=== PATIENT | female | born 1940 | race Caucasian/White ===

== ENCOUNTER 2017-05-14 08:34 | Inpatient (IN) | payer MEDICARE, BC ==
[~2017-05-14] VITALS: Ht 180.3 cm; Wt 66.0 kg
[2017-05-14] MEDS: FUROSEMIDE 40 MG TAB PO SCH (09:00)
[2017-05-14 12:47] VITALS: BP 123/59; PULSE 80; RESP 18; TEMP 97.6; O2SAT 100
[2017-05-14] MEDS ORDERED: WARF-21 PO (13:46)
[2017-05-14] MEDS ORDERED: FURO40TA PO (13:46)
[2017-05-14] MEDS ORDERED: ROPI3TAB PO (13:46)
[2017-05-14] MEDS ORDERED: WARF-22 PO (13:46)
[2017-05-14] MEDS ORDERED: CARB25TA9 PO (13:46)
[2017-05-14] MEDS ORDERED: VENTAER INH (13:46)
[2017-05-14] MEDS ORDERED: GABA300C5 PO (13:46)
[2017-05-14] MEDS ORDERED: ROPI1TAB PO (13:46)
[2017-05-14] MEDS ORDERED: BISO5TAB5 PO (13:46)
[2017-05-14] MEDS ORDERED: CARB10TA2 PO (13:46)
[2017-05-14] MEDS ORDERED: IRONTAB5 PO (13:47)
[2017-05-14] MEDS: D5-NS + KCL 20 MEQ INJ 1,000 ML IV SCH (15:02)
[2017-05-14 16:14] VITALS: BP 117/56; PULSE 76; RESP 17; TEMP 97.6; O2SAT 97
[2017-05-14] MEDS ORDERED: ALBUTEROL SULFATE 90 MCG/ACT HFA 18 GM INHALER INH PRN (17:00)
[2017-05-14] MEDS: GABAPENTIN 300 MG CAP PO SCH ×2 (18:08→21:00)
[2017-05-14] MEDS: CARBIDOPA/LEVODOPA 25 MG/100 MG TAB PO SCH ×2 (18:08→21:00)
[2017-05-14 22:55] VITALS: BP 107/56; PULSE 82; RESP 17; TEMP 97.8; O2SAT 100
[2017-05-15] MEDS: CARBIDOPA/LEVODOPA 25 MG/100 MG TAB PO SCH ×4 (00:01→22:28)
[2017-05-15] MEDS: GABAPENTIN 300 MG CAP PO SCH ×4 (00:02→22:28)
[2017-05-15 00:45] VITALS: BP 103/58; PULSE 83; RESP 17; TEMP 98; O2SAT 96
[2017-05-15 03:29] VITALS: BP 98/55; PULSE 73; RESP 17; TEMP 98.4; O2SAT 98
[2017-05-15 07:46] LABS: APTT (PATIENT) 36.6 SEC (24.3-30.1); INTERNATIONAL NORMALIZED RATIO 1.4 RATIO; PROTHROMBIN TIME - PATIENT 15.5 SEC (9.8-11.6)
[2017-05-15 08:00] VITALS: BP 98/55; PULSE 73; RESP 20; TEMP 97.8; O2SAT 97
[2017-05-15] MEDS: BISOPROLOL FUMARATE 5 MG TAB PO SCH (09:00)
[2017-05-15] MEDS ORDERED: DIGOXIN 0.25 MG TAB PO SCH (09:00)
[2017-05-15] MEDS ORDERED: BISOPROLOL 5 MG PO SCH (09:00)
[2017-05-15] MEDS ORDERED: FUROSEMIDE 20 MG TAB PO SCH (09:00)
[2017-05-15] MEDS: FUROSEMIDE 40 MG TAB PO SCH (10:05)
[2017-05-15 12:00] VITALS: BP 115/65; PULSE 81; RESP 16; TEMP 97.5; O2SAT 100
[2017-05-15] MEDS: D5-NS + KCL 20 MEQ INJ 1,000 ML IV SCH (14:11)
[2017-05-15] MEDS ORDERED: PEG (High)/E-LYTE SOLN 4000 ML BTL PO ONE (17:15)
[2017-05-15 17:44] VITALS: BP 115/56; PULSE 84; RESP 18; TEMP 97.6; O2SAT 99
[2017-05-15 20:00] VITALS: BP 109/55; PULSE 84; RESP 20; TEMP 97.5; O2SAT 100
[2017-05-15 20:46] LABS: HEMATOCRIT 34.8 % (35.0-46.0); MEAN CELL VOLUME 95.2 FL (80.0-100.0); MEAN CORPUSCULAR HEMOGLOBIN 31.5 PG (27.0-34.0); MEAN CORPUSCULAR HGB CONC 33.1 % (32.0-36.0); PLATELET COUNT 147 TH/MM3 (150-450); RED BLOOD COUNT 3.66 MIL/MM3 (4.00-5.30); REVIEW FLAG FINAL; WHITE BLOOD COUNT 4.7 TH/MM3 (4.0-11.0)
[2017-05-15 20:57] LABS: APTT (PATIENT) 36.4 SEC (24.3-30.1); INTERNATIONAL NORMALIZED RATIO 1.3 RATIO; PROTHROMBIN TIME - PATIENT 14.5 SEC (9.8-11.6)
[2017-05-15 21:09] LABS: BICARBONATE 32.6 MEQ/L (21.0-32.0); POTASSIUM 3.7 MEQ/L (3.5-5.1)
[2017-05-15] MEDS: HEPARIN-D5W 25,000 U/250 ML 250 ML IV PRN (22:32)
[2017-05-16] VITALS: BP 109/55; PULSE 84; RESP 20; TEMP 97.5; O2SAT 100
[2017-05-16] MEDS ORDERED: SODIUM CHLORID 0.9% 500 ML IV PRN (01:00)
[2017-05-16 01:57] LABS: APTT (PATIENT) 39.9 SEC (24.3-30.1)
[2017-05-16 04:00] VITALS: BP 113/58; PULSE 82; RESP 18; TEMP 96.9; O2SAT 99
--- NOTE | 2017-05-16 05:18 | MH ---
cc: SCOUT PADILLA M.D. DATE OF ADMISSION: 05/14/2017 ADMITTING DIAGNOSIS Anemia. HISTORY OF PRESENT ILLNESS The patient is 76-year-old female who is being admitted for workup of anemia. She was noted to be anemic by her primary care doctor and Cologuard follow-up test was positive. Her normal bowel habit is daily. She denies bright red blood per rectum or melena. She denies anal or abdominal pain. She denies protrusion, discharge, itching or weight loss. She is on Coumadin and this has been stopped for two full days at the time of admission. She has had one with one miscarriage. She does have urinary incontinence but denies anal incontinence. FAMILY HISTORY Negative for colorectal cancer or polyps. This will be her first colonoscopy. PAST MEDICAL HISTORY 1. Atrial fibrillation. 2. Kidney disease. 3. Hypertension. 4. Anemia. 5. Restless leg syndrome. PAST MEDICAL HISTORY 1. Appendectomy. 2. Heart valve replacement. 3. Pacemaker. ALLERGIES None. SOCIAL HISTORY Tobacco in the distant past. Denies alcohol. MEDICATIONS 1. Advair. 2. Losartan. 3. Digoxin. 4. Bisoprolol. 5. Carbidopa. 6. Ropinirole. 7. Gabapentin. 8. Furosemide 9. Magnesium. 10. Warfarin. REVIEW OF SYSTEMS Negative for chills, fatigue, night sweats, weight loss, blurred vision, chronic cough, difficulty breathing, chest pain, fainting, palpitations, leg cramps, muscle weakness, dizziness, fainting, appetite changes and positive for tinnitus, shortness of breath, swelling of extremities and easy bleeding and bruising. PHYSICAL EXAMINATION GENERAL: An alert female who appears comfortable. NEURO: Grossly intact. SKIN: Warm and dry. CARDIOVASCULAR: Regular rate. CHEST: Breathing is symmetric bilaterally and nonlabored. HEAD: Normocephalic, atraumatic. ABDOMEN: Benign. EXTREMITIES: No edema. IMPRESSION 1. Anemia. 2. Positive Cologuard test. 3. Screening. PLAN We will admit her for heparin anticoagulation which will be stopped prior to her colonoscopy and resumed depending on findings. MD DENG Bone/GOMEZ /11:52 PM /5:04 AM DREW
[2017-05-16 05:51] LABS: APTT (PATIENT) 34.6 SEC (24.3-30.1); INTERNATIONAL NORMALIZED RATIO 1.3 RATIO
--- NOTE | 2017-05-16 08:11 | GIPROC ---
[facility] [address] [facility]. [facility], [address] COLONOSCOPY PROCEDURE REPORT EXAM DATE: 05/16/2017 PATIENT NAME: Pina Perez MR #: [id number] BIRTHDATE: 1940 ENDOSCOPIST: Eli Gonzalez MD ORDER #: [id number] EQUAL OPPORTUNITY REPRESENTATIVE: STATUS: inpatient INDICATIONS: The patient is a 76 yr old female here for a colonoscopy due to anemia, positive ColoGuard test. PROCEDURE PERFORMED: Total Colonoscopy MEDICATIONS: See Anesthesia Record ESTIMATED BLOOD LOSS: None CONSENT: The patient understands the risks and benefits of the procedure and understands that these risks include, but are not limited to: sedation, allergic reaction, infection, perforation and/or bleeding. Alternative means of evaluation and treatment include, among others: physical exam, x-rays, and/or surgical intervention. The patient elects to proceed with this endoscopic procedure. DESCRIPTION OF PROCEDURE: checked for proper function. Hand hygiene and appropriate measures for infection prevention was taken. After the risks, benefits and alternatives of the procedure were thoroughly explained, Informed consent was verified, confirmed and timeout was successfully executed by the treatment team. A digital exam was performed. The Pentax adult colonoscopy endoscope was introduced through the anus and advanced to the cecum, which was identified by the appendiceal orifice, tri-radiate valve, and ileocecal valve. The prep quality was excellent. The instrument was then slowly withdrawn as the colon was fully examined. There were no mucosal abnormalities noted with the cecum, ascending colon, transverse colon, or descending colon. There were multiple diverticuli in the sigmoid. There were no abnormalities in the rectum. The scope was then completely withdrawn from the patient and the procedure terminated. ADVERSE EVENTS: There were no complications. WITHDRAWL TIME: DEGREE OF DIFFICULTY: IMPRESSIONS: Normal Colon RECOMMENDATIONS: Repeat colonoscopy in 10 years PATIENT CONDITION: Stable DISPOSITION: To floor RECALL: 10 years Eli Gonzalez MD eSigned: Eli Gonzalez MD 05/16/2017 8:11 AM cc: Dr. Todd PATIENT NAME: Pina Perez MR#: [id number]
[2017-05-16] MEDS: FUROSEMIDE 40 MG TAB PO SCH (08:59)
[2017-05-16] MEDS: BISOPROLOL FUMARATE 5 MG TAB PO SCH (08:59)
[2017-05-16] MEDS: GABAPENTIN 300 MG CAP PO SCH ×4 (08:59→22:37)
[2017-05-16] MEDS ORDERED: PROPOFOL 200 MG/20 ML AMP IV ONE (09:00)
[2017-05-16] MEDS: CARBIDOPA/LEVODOPA 25 MG/100 MG TAB PO SCH ×4 (09:00→22:37)
[2017-05-16] MEDS ORDERED: WARFARIN SOD 10 MG TAB PO ONE (09:00)
[2017-05-16] MEDS: HEPARIN-D5W 25,000 U/250 ML 250 ML IV PRN (09:14)
[2017-05-16 12:00] VITALS: BP 96/53; PULSE 72; RESP 16; TEMP 96.1; O2SAT 94
[2017-05-16 16:00] VITALS: BP 115/67; PULSE 83; RESP 16; TEMP 96.1; O2SAT 98
[2017-05-16 17:46] LABS: APTT (PATIENT) 59.4 SEC (24.3-30.1)
--- NOTE | 2017-05-16 19:45 | EKG ---
Date Performed: 05/15/2017 Time Performed: 21:00:55 PTAGE: 76 years EKG: ELECTRONIC VENTRICULAR PACEMAKER ABNORMAL RHYTHM ECG NO PREVIOUS TRACING DOCTOR: Gian Rosario Interpretating Date/Time 05/16/2017 19:44:13
[2017-05-16 20:00] VITALS: BP 136/68; PULSE 83; RESP 20; TEMP 95.9; O2SAT 96
[2017-05-16 23:42] LABS: BLOOD, URINE NEG (NEG); COMMENT (UR) CULT NOT INDICATED; CULTURE IF INDICATED CULT NOT INDICATED; GLUCOSE,URINE NEG (NEG); KETONE, URINE NEG (NEG); NITRITE,URINE NEG (NEG); URINE COLOR YELLOW (YELLW/STRAW)
[2017-05-16 23:56] LABS: APTT (PATIENT) 70.6 SEC (24.3-30.1)
[2017-05-17] VITALS (8 sets, daily range): BP systolic 97–125; BP diastolic 53–85; PULSE 76–127; RESP 16–22; TEMP 95.9–98; O2SAT 94–98
[2017-05-17] MEDS: HEPARIN-D5W 25,000 U/250 ML 250 ML IV PRN (02:01)
[2017-05-17 07:39] LABS: APTT (PATIENT) 55.8 SEC (24.3-30.1)
[2017-05-17] MEDS ORDERED: WARFARIN SOD 7.5 MG TAB PO ONE ×2 (09:00→17:45)
[2017-05-17 09:15] LABS: INTERNATIONAL NORMALIZED RATIO 1.3 RATIO; PROTHROMBIN TIME - PATIENT 14.8 SEC (9.8-11.6)
[2017-05-17] MEDS: FUROSEMIDE 40 MG TAB PO SCH (10:00)
[2017-05-17] MEDS: GABAPENTIN 300 MG CAP PO SCH ×4 (10:01→20:50)
[2017-05-17] MEDS: CARBIDOPA/LEVODOPA 25 MG/100 MG TAB PO SCH ×4 (10:03→20:50)
[2017-05-17] MEDS: BISOPROLOL FUMARATE 5 MG TAB PO SCH (10:04)
--- NOTE | 2017-05-17 10:56 | HHI.PR ---
Subjective Remarks s/p colonoscopy, on heparin gtt for cardiac valve Some bleeding overnight, seems to have stopped now Objective Vital Signs Date Time Temp Pulse Resp B/P (MAP) Pulse Ox O2 Delivery O2 Flow Rate FiO2 05/17/17 08:56 84 16 125/70 (88) 94 05/17/17 08:00 98.0 84 16 121/60 (80) 94 05/17/17 04:00 97.7 82 18 112/57 (75) 96 05/17/17 00:00 97.2 87 20 106/85 (92) 96 05/16/17 20:00 95.9 83 20 136/68 (90) 96 05/16/17 16:00 96.1 83 16 115/67 (83) 98 05/16/17 12:00 96.1 72 16 96/53 (67) 94 I/O 05/16/17 05/16/17 05/16/17 05/17/17 05/17/17 05/17/17 06:59 14:59 22:59 06:59 14:59 22:59 Intake Total 854 ml 350 ml 300 ml 344 ml Balance 854 ml 350 ml 300 ml 344 ml Intake Oral 300 ml IV Total 854 ml 50 ml 344 ml Other 300 ml # Voids 4 2 # Bowel Movements 0 Result Diagram: 05/15/17199905/15/171999 Objective Remarks No current bleeding Abdomen benign Assessment and Plan Assessment and Plan Will continue with coumadin Run heparin gtt at low dose until discharge discharge in am Eli Gonzalez MD May 17, 2017 10:56
[2017-05-17 11:41] LABS: AUTOMATED NEUTROPHIL # 2.6 TH/MM3 (1.8-7.7); BASOPHIL % 0.9 % (0.0-2.0); EOSINOPHIL # 0.1 TH/MM3 (0-0.4); EOSINOPHIL % 3.4 % (0.0-4.0); HEMATOCRIT 31.4 % (35.0-46.0); HEMO FLAGS DIFF FINAL; LYMPH % 25.6 % (9.0-44.0); LYMPHOCYTE # 1.1 TH/MM3 (1.0-4.8); MEAN CELL VOLUME 96.2 FL (80.0-100.0); MEAN CORPUSCULAR HEMOGLOBIN 31.5 PG (27.0-34.0); MEAN CORPUSCULAR HGB CONC 32.7 % (32.0-36.0); MONO % 9.2 % (0.0-8.0); NEUT % 60.9 % (16.0-70.0); PLATELET COUNT 122 TH/MM3 (150-450); RED BLOOD COUNT 3.26 MIL/MM3 (4.00-5.30); RED CELL DISTRIBUTION WIDTH 15.1 % (11.6-17.2); WHITE BLOOD COUNT 4.2 TH/MM3 (4.0-11.0)
[2017-05-17 20:27] LABS: APTT (PATIENT) 40.9 SEC (24.3-30.1)
[2017-05-18] VITALS: BP 94/51; PULSE 82; RESP 16; TEMP 97.3; O2SAT 92
[2017-05-18 02:33] LABS: APTT (PATIENT) 41.1 SEC (24.3-30.1)
[2017-05-18 06:05] LABS: MEAN CELL VOLUME 96.4 FL (80.0-100.0); MEAN CORPUSCULAR HEMOGLOBIN 31.7 PG (27.0-34.0); MEAN CORPUSCULAR HGB CONC 32.9 % (32.0-36.0); PLATELET COUNT 119 TH/MM3 (150-450); RED BLOOD COUNT 3.32 MIL/MM3 (4.00-5.30); REVIEW FLAG FINAL; WHITE BLOOD COUNT 3.9 TH/MM3 (4.0-11.0)
[2017-05-18 06:29] LABS: APTT (PATIENT) 39.7 SEC (24.3-30.1); INTERNATIONAL NORMALIZED RATIO 1.2 RATIO; PROTHROMBIN TIME - PATIENT 13.6 SEC (9.8-11.6)
[2017-05-18 08:00] VITALS: BP 131/66; PULSE 79; RESP 17; TEMP 96.3; O2SAT 96
[2017-05-18 08:06] VITALS: BP 120/80; PULSE 79; RESP 20
[2017-05-18] MEDS: HEPARIN-D5W 25,000 U/250 ML 250 ML IV PRN (08:20)
[2017-05-18] MEDS: FUROSEMIDE 40 MG TAB PO SCH (09:12)
[2017-05-18] MEDS: GABAPENTIN 300 MG CAP PO SCH (09:12)
[2017-05-18] MEDS: CARBIDOPA/LEVODOPA 25 MG/100 MG TAB PO SCH (09:15)
[2017-05-18] MEDS: BISOPROLOL FUMARATE 5 MG TAB PO SCH (09:18)
[2017-05-18] MEDS ORDERED: WARFARIN SOD 7.5 MG TAB PO SCH (16:00)
--- NOTE | 2017-05-22 21:28 | MD ---
cc: SCOUT PDAILLA M.D. ADMISSION DATE: 05/14/2017 DISCHARGE DATE: 05/18/2017 ADMISSION DIAGNOSIS Anemia. HISTORY OF THE PRESENT ILLNESS The patient is a 76-year-old female with history of anemia and positive Cologuard. She was admitted to the hospital on May 14, 2017. She was anticoagulated prior to her colonoscopy which was performed on the . Colonoscopy was negative with the exception of diverticulosis. She was then restarted on her anticoagulation and she is discharged to home on May 18, 2017. PAST MEDICAL HISTORY 1. Atrial fibrillation. 2. Kidney disease. 3. Hypertension. 4. Anemia. MD DENG Bone/KK /9:11 AM /9:16 PM MTDD
== END 2017-05-18 11:01 | disposition home or self-care (01) | DRG 812 ==
LOC: NEPGCP 11:43 → N07B 05-15 18:31
PROVIDERS: ADMIT Colon & Rectal Surgery; ATTEND Colon & Rectal Surgery
PROC: 0DJD8ZZ Inspection of Lower Intestinal Tract, Via Natural or Artificial Opening Endoscopic (ICD-10-PCS; principal; 2017-05-16 07:40)
DX: D64.9 Anemia, unspecified (principal); I48.91 Unspecified atrial fibrillation; I10 Essential (primary) hypertension; G25.81 Restless legs syndrome; N28.9 Disorder of kidney and ureter, unspecified; K57.30 Diverticulosis of large intestine without perforation or abscess without bleeding; R32 Unspecified urinary incontinence; Z95.2 Presence of prosthetic heart valve; Z79.01 Long term (current) use of anticoagulants
CPT/HCPCS: 80048; 81001; 85025; 85027; 85610; 85730; 93005; J1644; J2250; J3010; J3480